=== PATIENT | female | born 1980 | race Caucasian/White ===

== ENCOUNTER → 2018-01-17 | Outpatient (CLI) | payer BC ==
[2018-01-17 09:57] LABS: ANION GAP 9 (5-13); BLOOD UREA NITROGEN 14 mg/dl (7-20); CALCIUM 8.5 mg/dl (8.4-10.2); CARBON DIOXIDE 21 mmol/L (21-31); CHLORIDE 112 mmol/L (97-110); CREATININE 0.77 mg/dl (0.44-1.00); Estimated GFR > 60 mL/min (>60); GLUCOSE 147 mg/dl (70-220); POTASSIUM 3.7 mmol/L (3.5-5.1); SODIUM 142 mmol/L (135-144)
== END | disposition home or self-care (01) ==
LOC: LAB 08:52
DX: R07.9 Chest pain, unspecified (principal); R06.02 Shortness of breath
CPT/HCPCS: 80048

== ENCOUNTER 2018-01-25 11:15 | Day surgery (SDC) | payer BC ==
[2018-01-25] MEDS ORDERED: FENTAnyl 50 MCG/ML VIAL (14:16)
[2018-01-25] MEDS ORDERED: LIDOCAINE 100 MG SYRINGE (14:16)
[2018-01-25] MEDS ORDERED: PROPOFOL 60 ML (14:16)
== END 2018-01-25 17:09 | disposition home or self-care (01) ==
LOC: GIL 11:15
DX: R19.7 Diarrhea, unspecified (principal); K21.0 Gastro-esophageal reflux disease with esophagitis; E11.40 Type 2 diabetes mellitus with diabetic neuropathy, unspecified; Z98.84 Bariatric surgery status; I10 Essential (primary) hypertension; E66.9 Obesity, unspecified; Z68.41 Body mass index [BMI] 40.0-44.9, adult; J45.909 Unspecified asthma, uncomplicated
CPT/HCPCS: 43239; 88305; 88312; 88313

== ENCOUNTER → 2018-01-28 | Outpatient (CLI) | payer BC ==
[~2018-01-28] MED LIST: METOPROLOL 100 MG TAB PO; METOPROLOL 50 MG TAB PO; NITROGLYCERIN AEROSOL (4.9 GM)
[2018-01-28] MEDS: METOPROLOL 100 MG TAB ×3 (10:25→13:27)
[2018-01-28] MEDS: IOHEXOL 100 ML (13:55)
[2018-01-28] MEDS: SOD CHLORIDE 0.9% 100 ML (13:55)
== END | disposition home or self-care (01) ==
LOC: C/S 09:00
DX: R07.9 Chest pain, unspecified (principal); R06.02 Shortness of breath
CPT/HCPCS: 75574